=== PATIENT | male | born 1995 | race Caucasian/White ===

== ENCOUNTER 2023-03-05 22:14 | Emergency (ER) | payer SELFPAY ==
[~2023-03-05] VITALS: Ht 177.8 cm; Wt 81.6 kg
[2023-03-05 22:56] VITALS: BP_SYST 120; PULSE 74; RESP 18; TEMP 98.3; O2SAT 99
== END 2023-03-05 22:38 ==
LOC: SED 22:14
DX: Z02.89 Encounter for other administrative examinations (principal); F10.129 Alcohol abuse with intoxication, unspecified; Z79.899 Other long term (current) drug therapy; Y90.6 Blood alcohol level of 120-199 mg/100 ml
CPT/HCPCS: 99283